=== PATIENT | female | born 1940 | race Caucasian/White ===

== ENCOUNTER 2021-03-21 12:28 | Inpatient (IN) | payer MEDICARE ==
[2021-03-21] MEDS ORDERED: SODIUM CHLORIDE 0.9% 1,000 ML IV STA (12:30)
[2021-03-21] MEDS ORDERED: DIPH,PERTUS(ACELL)TETVAC-LF 0.5 ML VIAL IM ONE (12:30)
[2021-03-21 12:33] LABS: Glucose,Whole Blood 133 mg/dL (75-99)
[2021-03-21] MEDS ORDERED: LIDOCAINE 2% INJ 20 MG/ML (20 ML MDV) IV ONE (12:38)
--- NOTE | 2021-03-21 12:51 | ED ---
General Adult HPI - General Stated complaint: head injury, trauma Time Seen by Provider: 03/21/21 12:28 Source: patient, EMS, RN notes reviewed, old records reviewed - History of Present Illness Initial comments: This is an 80-year-old female who fell backwards and hit her head on the concrete. Patient is not on any thinners. Patient hit her head but did not lose consciousness however EMS stated she became less and less responsive in route. Currently patient is able to answer her name and where she is but does not remember the event. Patient currently denies any symptoms but again she is alert and oriented 2 only. According to the people that were with the patient she is typically a little unsteady on her feet. No other history is available this time - Related Data Home Medications Medication Instructions Recorded Confirmed Citalopram Hydrobromide 40 mg PO DAILY 03/21/21 03/21/21 [Citalopram HBr] Fluticasone/Umeclidin/Vilanter 1 puff INHALATION RT-DAILY 03/21/21 03/21/21 [Trelegy Ellipta 100-62.5-25] Losartan [Cozaar] 50 mg PO DAILY 03/21/21 03/21/21 Simvastatin [Zocor] 40 mg PO DAILY 03/21/21 03/21/21 Allergies Allergy/AdvReac Type Severity Reaction Status Date / Time fish derived Allergy Unknown Verified 03/21/21 13:11 Penicillins Allergy Unknown Verified 03/21/21 13:11 Review of Systems ROS Statement: Those systems with pertinent positive or pertinent negative responses have been documented in the HPI. ROS Other: All systems not noted in ROS Statement are negative. General Exam - General Exam Comments Initial Comments: GENERAL: Patient is well-developed and well-nourished. Patient is nontoxic and well- hydrated and is in mild distress. On the occipital region of the scalp a little bit to the right is an area about 2 cm in diameter that feels slightly depressed. Patient remains in a c-collar. ENT: Neck is soft and supple. No significant lymphadenopathy is noted. Oropharynx is clear. Moist mucous membranes. EYES: The sclera were anicteric and conjunctiva were pink and moist. Extraocular movements were intact and pupils were equal round and reactive to light. Eyelids were unremarkable. PULMONARY: Unlabored respirations. Good breath sounds bilaterally. No audible rales rhonchi or wheezing was noted. CARDIOVASCULAR: There is a regular rate and rhythm without any murmurs gallops or rubs. ABDOMEN Soft and nontender with normal bowel sounds. SKIN: Skin is clear with no lesions or rashes and otherwise unremarkable. NEUROLOGIC: Patient is alert and oriented 2. Cranial nerves II through XII are grossly intact. Motor and sensory are also intact. Normal speech, volume and content. Symmetrical smile. MUSCULOSKELETAL: Normal extremities with adequate strength and full range of motion. No lower extremity swelling or edema. No calf tenderness. LYMPHATICS: No significant lymphadenopathy is noted PSYCHIATRIC: Normal psychiatric evaluation. Course Vital Signs 03/21/21 03/21/21 13:02 17:35 Pulse Rate 62 54 L Respiratory 18 18 Rate Blood Pressure 200/118 135/71 O2 Sat by Pulse 93 L 98 Oximetry Procedures - Laceration Laceration #1 Consent Obtained: verbal consent Indication: laceration Site: scalp Description: stellate Depth: simple, single layer Size of Sutures: other ([place] #5) Technique: simple, interrupted ( 5) Complications: pain Patient Tolerated Procedure: well Medical Decision Making - Medical Decision Making This was called a priority 1 trauma EKG shows sinus rhythm at 72 bpm WV interval 170 QRS is 82 QT interval 420 QTC is 459. Patient's EKG shows no ST segment elevation or depression. Chest x-ray shows age-indeterminate right sided rib deformity patient is not tender over that area at all. X-ray of the pelvis shows a question superior rami fracture on the right however on palpation of that area and full range of motion of the hip I did not elicit any pain from the patient. Patient is a 3 cm lack on her scalp was stapled that up. Patient also was nauseous she received Zofran she also received tetanus and Ancef. Dr. Tobias came down and saw the patient and determined the patient could be admitted under her I will also consult neurology and medicine. Dr. Tobias downgraded trauma to a democrat to after she saw the patient and the CAT scan's After patient was admitted and she got up to go to the bathroom she was planning of a little right pelvis pain. Be consistent with the possible superior rami fracture. - Lab Data Result diagrams: 03/21/21 12:36 03/21/21 12:36 Lab Results 03/21/21 03/21/21 03/21/21 Range/Units 12:31 12:36 12:36 WBC 10.1 (3.8-10.6) k/uL RBC 4.81 (3.80-5.40) m/uL Hgb 15.7 (11.4-16.0) gm/dL Hct 46.9 H (34.0-46.0) % MCV 97.5 D (80.0-100.0) fL MCH 32.7 (25.0-35.0) pg MCHC 33.6 (31.0-37.0) g/dL RDW 12.7 (11.5-15.5) % Plt Count 230 (150-450) k/uL MPV 8.0 Neutrophils % 73 % Lymphocytes % 17 % Monocytes % 7 % Eosinophils % 1 % Basophils % 0 % Neutrophils # 7.3 (1.3-7.7) k/uL Lymphocytes # 1.7 (1.0-4.8) k/uL Monocytes # 0.7 (0-1.0) k/uL Eosinophils # 0.1 (0-0.7) k/uL Basophils # 0.0 (0-0.2) k/uL PT 10.0 (9.0-12.0) sec INR 0.9 (<1.2) APTT 19.5 L (22.0-30.0) sec Sodium (137-145) mmol/L Potassium (3.5-5.1) mmol/L Chloride (98-107) mmol/L Carbon Dioxide (22-30) mmol/L Anion Gap mmol/L BUN (7-17) mg/dL Creatinine (0.52-1.04) mg/dL Est GFR (CKD-EPI)AfAm (>60 ml/min/1.73 sqM) Est GFR (CKD-EPI)NonAf (>60 ml/min/1.73 sqM) Glucose (74-99) mg/dL POC Glucose (mg/dL) 133 H (75-99) mg/dL POC Glu Customer Technical Services Manager ID Demetrio Zhun Calcium (8.4-10.2) mg/dL Total Bilirubin (0.2-1.3) mg/dL AST (14-36) U/L ALT (4-34) U/L Alkaline Phosphatase (38-126) U/L Troponin I (0.000-0.034) ng/mL Total Protein (6.3-8.2) g/dL Albumin (3.5-5.0) g/dL Serum Alcohol mg/dL Blood Type Blood Type Confirm Blood Type Recheck Bld Type Recheck Status Antibody Screen Spec Expiration Date 03/21/21 03/21/21 03/21/21 Range/Units 12:36 12:36 12:36 WBC (3.8-10.6) k/uL RBC (3.80-5.40) m/uL Hgb (11.4-16.0) gm/dL Hct (34.0-46.0) % MCV (80.0-100.0) fL MCH (25.0-35.0) pg MCHC (31.0-37.0) g/dL RDW (11.5-15.5) % Plt Count (150-450) k/uL MPV Neutrophils % % Lymphocytes % % Monocytes % % Eosinophils % % Basophils % % Neutrophils # (1.3-7.7) k/uL Lymphocytes # (1.0-4.8) k/uL Monocytes # (0-1.0) k/uL Eosinophils # (0-0.7) k/uL Basophils # (0-0.2) k/uL PT (9.0-12.0) sec INR (<1.2) APTT (22.0-30.0) sec Sodium 137 (137-145) mmol/L Potassium 5.1 (3.5-5.1) mmol/L Chloride 106 (98-107) mmol/L Carbon Dioxide 20 L (22-30) mmol/L Anion Gap 11 mmol/L BUN 14 (7-17) mg/dL Creatinine 0.88 (0.52-1.04) mg/dL Est GFR (CKD-EPI)AfAm 72 (>60 ml/min/1.73 sqM) Est GFR (CKD-EPI)NonAf 62 (>60 ml/min/1.73 sqM) Glucose 140 H (74-99) mg/dL POC Glucose (mg/dL) (75-99) mg/dL POC Glu Customer Technical Services Manager ID Calcium 9.9 (8.4-10.2) mg/dL Total Bilirubin 0.8 (0.2-1.3) mg/dL AST 30 (14-36) U/L ALT 14 (4-34) U/L Alkaline Phosphatase 73 (38-126) U/L Troponin I <0.012 (0.000-0.034) ng/mL Total Protein 7.2 (6.3-8.2) g/dL Albumin 4.2 (3.5-5.0) g/dL Serum Alcohol <10 mg/dL Blood Type A Positive Blood Type Confirm Blood Type Recheck No Previous Record Bld Type Recheck Status CABO Indicated Antibody Screen NEGATIVE Spec Expiration Date 03/24/2021 - 233503/21/21 Range/Units 13:09 WBC (3.8-10.6) k/uL RBC (3.80-5.40) m/uL Hgb (11.4-16.0) gm/dL Hct (34.0-46.0) % MCV (80.0-100.0) fL MCH (25.0-35.0) pg MCHC (31.0-37.0) g/dL RDW (11.5-15.5) % Plt Count (150-450) k/uL MPV Neutrophils % % Lymphocytes % % Monocytes % % Eosinophils % % Basophils % % Neutrophils # (1.3-7.7) k/uL Lymphocytes # (1.0-4.8) k/uL Monocytes # (0-1.0) k/uL Eosinophils # (0-0.7) k/uL Basophils # (0-0.2) k/uL PT (9.0-12.0) sec INR (<1.2) APTT (22.0-30.0) sec Sodium (137-145) mmol/L Potassium (3.5-5.1) mmol/L Chloride (98-107) mmol/L Carbon Dioxide (22-30) mmol/L Anion Gap mmol/L BUN (7-17) mg/dL Creatinine (0.52-1.04) mg/dL Est GFR (CKD-EPI)AfAm (>60 ml/min/1.73 sqM) Est GFR (CKD-EPI)NonAf (>60 ml/min/1.73 sqM) Glucose (74-99) mg/dL POC Glucose (mg/dL) (75-99) mg/dL POC Glu Customer Technical Services Manager ID Calcium (8.4-10.2) mg/dL Total Bilirubin (0.2-1.3) mg/dL AST (14-36) U/L ALT (4-34) U/L Alkaline Phosphatase (38-126) U/L Troponin I (0.000-0.034) ng/mL Total Protein (6.3-8.2) g/dL Albumin (3.5-5.0) g/dL Serum Alcohol mg/dL Blood Type Blood Type Confirm A Positive Blood Type Recheck Bld Type Recheck Status Antibody Screen Spec Expiration Date Critical Care Time Critical Care Time: Yes Total Critical Care Time: 35 Disposition Clinical Impression: Scalp laceration, Concussion, Fracture of superior pubic ramus Disposition: ADMITTED IP TO THIS [facility] Time of Disposition: 13:45
[2021-03-21 12:52] LABS: Basophils % (A) 0 %; Eosinophils # (A) 0.1 k/uL (0-0.7); Eosinophils % (A) 1 %; HCT 46.9 % (34.0-46.0); HGB 15.7 gm/dL (11.4-16.0); Lymphocytes # (A) 1.7 k/uL (1.0-4.8); Lymphocytes % (A) 17 %; MCH 32.7 pg (25.0-35.0); MCHC 33.6 g/dL (31.0-37.0); Monocytes # (A) 0.7 k/uL (0-1.0); Monocytes % (A) 7 %; Neutrophils # (A) 7.3 k/uL (1.3-7.7); Neutrophils % (A) 73 %; Platelet Count 230 k/uL (150-450); RBC 4.81 m/uL (3.80-5.40); RDW 12.7 % (11.5-15.5); WBC 10.1 k/uL (3.8-10.6)
--- NOTE | 2021-03-21 12:53 | XR ---
EXAMINATION TYPE: XR pelvis AP view DATE OF EXAM: 03/21/2021 COMPARISON: NONE HISTORY: Pain The osseous structures are intact and the joint spaces are preserved. No acute fracture is seen. Vi sualized bowel gas pattern is nonspecific. Calcifications are likely vascular. Additional calcificat ions are seen adjacent to the acetabulum. There appears to be cortical step-off near the anterior col umn of acetabulum and superior pubic ramus. Diffuse osteopenia. Degenerative change of the spine. IMPRESSION: 1. Exam is limited due to patient rotation however findings are suspicious for a fracture near the an terior column of the acetabulum and superior pubic ramus junction. Correlate with pain and point tend erness..
[2021-03-21] MEDS ORDERED: ONDANSETRON 4 MG/2 ML VIAL IVP STA (12:54)
[2021-03-21 13:03] LABS: ALT 14 U/L (4-34); African American GFR (CKD) 72 (>60 ml/min/1.73 sqM); Alcohol <10 mg/dL; Anion Gap 11 mmol/L; Blood Urea Nitrogen 14 mg/dL (7-17); Calcium 9.9 mg/dL (8.4-10.2); Carbon Dioxide 20 mmol/L (22-30); Chloride 106 mmol/L (98-107); Glucose 140 mg/dL (74-99); Non-African American GFR(CKD) 62 (>60 ml/min/1.73 sqM); Sodium 137 mmol/L (137-145); Total Bilirubin 0.8 mg/dL (0.2-1.3)
[2021-03-21 13:04] LABS: INR 0.9 (<1.2)
--- NOTE | 2021-03-21 13:04 | XR ---
EXAMINATION TYPE: XR chest 1V portable DATE OF EXAM: 03/21/2021 COMPARISON: NONE HISTORY: Pain TECHNIQUE: Single frontal view of the chest is obtained. FINDINGS: Diffuse osteopenia. There is atherosclerotic change of the aorta with ectasia. Hyperinflat ion suggests COPD. Deformities involving the right mid lateral and posterior lower rib cage of the ri ght fifth and sixth rib suspicious for fractures. No interstitial edema or pleural effusion. Heart is prominent in size. IMPRESSION: 1. Age-indeterminate deformities involving the mid lateral and lower right rib cage correlate with po int tenderness to exclude subtle acute fractures.
--- NOTE | 2021-03-21 13:12 | CT ---
EXAMINATION TYPE: CT brain ajit sauceda DATE OF EXAM: 03/21/2021 COMPARISON: None HISTORY: Trauma, fall backwards from standing position CT DLP: 1318.6 mGycm, Automated exposure control for dose reduction was used. CONTRAST: Patient injected with 0 mL of Isovue 300. CT of the brain is performed utilizing 3 mm thick sections through the posterior fossa and 3 mm thick sections through the remaining calvarium. Study is performed within 24 hours of arrival to the hospital. No abnormal hyperdensity is present to suggest an acute intracranial hemorrhage. No mass lesion is evident. No acute infarcts are evident. There is an old lacunar infarct within the right basal ganglia. There is some mild periventricular white matter hypodensity, likely in the bases chronic white matter isch emic changes. Ventricles and sulci are appropriate for the patient age. Paranasal sinuses and mastoid air cells within the [id number] are clear. No depressed skull fractu res are evident. No acute skull fractures are identified. IMPRESSIONS: 1. Atrophy with chronic appearing periventricular white matter ischemic changes. 2. 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 CT cervical spine. COMPARISON: None CT of the cervical spine is performed in the axial plane at 2 mm thick sections. Reconstructed image s in the coronal, and sagittal plane are reviewed on the computer. No acute fractures are evident. There is a kyphosis present. There is loss of disc height throughout the cervical spine greatest at C5-6. Anterior vertebral body spurring is present C3-C7. There is a grade 1 spondylolisthesis of C3 anterior C4. Note is made of so me uncovertebral joint hypertrophy without severe foraminal stenosis. Vertebral body heights are preserved. No spinal canal stenosis is evident. IMPRESSIONS: 1. Degenerative disc changes throughout the cervical spine. 2. Cervical kyphosis. 3. Grade 1 spondylolisthesis of C3 anteriorly on C4. 4. No acute osseous abnormality cervical spine
[2021-03-21 13:13] LABS: MCV 97.5 fL (80.0-100.0)
[2021-03-21 13:15] LABS: Partial Thromboplastin Time 19.5 sec (22.0-30.0)
[2021-03-21] MEDS ORDERED: LIDOCAINE 2% SYG (PF) 100 MG/5 ML IV ONE (13:15)
[2021-03-21 13:16] LABS: AST 30 U/L (14-36); Albumin 4.2 g/dL (3.5-5.0); Alkaline Phosphatase 73 U/L (38-126); Potassium 5.1 mmol/L (3.5-5.1); Total Protein 7.2 g/dL (6.3-8.2)
--- NOTE | 2021-03-21 13:33 | P.GSHP ---
History of Present Illness H&P Date: 03/21/21 CHIEF COMPLAINT: Status post fall, ground level HISTORY OF PRESENT ILLNESS: The patient is a 80-year-old female who presented acutely to the emergency room as a initial level I trauma for depressed skull fracture after falling onto concrete ground. Upon initial assessment, patient did have delirium per ER records. Additionally, patient had laceration on the scalp. No reports of blood thinners. Patient was admitted with status post fall and concussive event. PAST MEDICAL HISTORY: See list and reviewed PAST SURGICAL HISTORY: See list and reviewed MEDICATIONS: See list and reviewed ALLERGIES: See list and reviewed SOCIAL HISTORY: See list and reviewed FAMILY HISTORY: See list and reviewed REVIEW OF ORGAN SYSTEMS: Obtained her records CONSTITUTIONAL: No fevers or chills. EYES: Denies any trouble with vision. No glasses. HEENT: No difficulties with hearing. No nosebleeds. No difficulty swallowing. RESPIRATORY: Denies pneumonia. Denies any troubles with breathing or dyspnea on exertion. CARDIOVASCULAR: Has hypertensive heart disease GASTROINTESTINAL: No recent change in bowel habits. GENITOURINARY: No blood in urine. NEUROLOGICAL: No recent strokes. MUSCULOSKELETAL: Denies any back pain, stiffness or joint arthritis. SKIN: No current skin cancer. No rash. PSYCHIATRIC: Has depression. ENDOCRINE: Denies current thyroid disorders. Denies any blood sugar glucose intolerance. HEME/LYMPHATIC: No chronic blood thinners. ALLERGY/IMMUNOLOGY: No immunoglobulin therapy. No immune deficiencies. BREAST: Denies current breast lumps, pain or nipple discharge. PHYSICAL EXAM: VITALS: Reviewed CONSTITUTIONAL: Well developed and in no acute distress. EYES: Conjuctivae without sclera icterus. Extraocular movements grossly intact. HEAD, EARS, NOSE, THROAT: Moist buccal mucosa. Hears conversational speech. No nasal drainage. Laceration of posterior scalp. NECK: No spinal tenderness. RESPIRATORY: Non-labored respirations and equal bilateral excursions. No gross wheezes. CARDIOVASCULAR: Regular rate and rhythm. Palpable 2+ radial pulses. ABDOMEN: No peritonitis. Nontender. LYMPH: No gross neck lymphadenopathy. MUSCULOSKELETAL: No clubbing cyanosis or edema. SKIN: Warm and well perfused with good skin turgor. NEUROLOGIC: Cranial nerves II through XII grossly intact. No focal or lateralizing signs. Patient follows commands. Can wiggle toes. PSYCH: Alert and oriented to person. CLINCAL LABS: Reviewed. WBC normal at 10,000. Coags within normal limits. IMAGING: Independently reviewed CT of the head without acute intracranial inj ury. No skull fractures identified. This is my independent interpretation. RADIOLOGY: Report reviewed CTs of the head and spine without acute intracranial injury or spinal injury Pelvic x-ray report questionable pubic rami fracture Chest x-ray report with old rib fractures EKG: Demonstrate multiple abnormalities including inferior and anterior infarcts, age undetermined ASSESSMENT: 1. Status post ground-level fall with head laceration and concussive event PLAN: 1. Admission with consultation to neurology for concussive event 2. Medicine consultation for general medical care 3. Orthopedic consultation for questionable pubic chromic 4. Cardiology consultation for abnormal EKG EVENTS: I presented for trauma activation. Patient seen and evaluated. Initial trauma 1 activation for suspicion of depressed skull fracture and mental status changes. Computed tomography scan negative for acute skull fracture. Patient came in hypertensive. No hypotension. Case downgraded to level II without presence of depressed skull fracture or hypotension. Critical care time including discussion, review of films, coordination of care over 33 minutes Past Medical History Past Medical History: COPD, Hyperlipidemia, Hypertension History of Any Multi-Drug Resistant Organisms: None Reported Past Surgical History: Hysterectomy Past Psychological History: No Psychological Hx Reported Smoking Status: Current every day smoker Past Alcohol Use History: None Reported Past Drug Use History: None Reported Medications and Allergies Home Medications Medication Instructions Recorded Confirmed Type Citalopram Hydrobromide 40 mg PO DAILY 03/21/21 03/21/21 History [Citalopram HBr] Fluticasone/Umeclidin/Vilanter 1 puff INHALATION RT-DAILY 03/21/21 03/21/21 History [Trelegy Ellipta 100-62.5-25] Losartan [Cozaar] 50 mg PO DAILY 03/21/21 03/21/21 History Simvastatin [Zocor] 40 mg PO DAILY 03/21/21 03/21/21 History Allergies Allergy/AdvReac Type Severity Reaction Status Date / Time fish derived Allergy Unknown Verified 03/21/21 13:11 Penicillins Allergy Unknown Verified 03/21/21 13:11 Surgical - Exam Vital Signs Pulse Resp BP Pulse Ox 62 18 200/118 93 L 03/21/21 13:02 03/21/21 13:02 03/21/21 13:02 03/21/21 13:02 Results - Labs 03/21/21 12:36 03/21/21 12:36 Abnormal Lab Results - Last 24 Hours (Table) 03/21/21 03/21/21 03/21/21 Range/Units 12:31 12:36 12:36 Hct 46.9 H (34.0-46.0) % APTT 19.5 L (22.0-30.0) sec Carbon Dioxide (22-30) mmol/L Glucose (74-99) mg/dL POC Glucose (mg/dL) 133 H (75-99) mg/dL 03/21/21 Range/Units 12:36 Hct (34.0-46.0) % APTT (22.0-30.0) sec Carbon Dioxide 20 L (22-30) mmol/L Glucose 140 H (74-99) mg/dL POC Glucose (mg/dL) (75-99) mg/dL Diabetes panel 03/21/21 Range/Units 12:36 Sodium 137 (137-145) mmol/L Potassium 5.1 (3.5-5.1) mmol/L Chloride 106 (98-107) mmol/L Carbon Dioxide 20 L (22-30) mmol/L BUN 14 (7-17) mg/dL Creatinine 0.88 (0.52-1.04) mg/dL Glucose 140 H (74-99) mg/dL Calcium 9.9 (8.4-10.2) mg/dL AST 30 (14-36) U/L ALT 14 (4-34) U/L Alkaline Phosphatase 73 (38-126) U/L Total Protein 7.2 (6.3-8.2) g/dL Albumin 4.2 (3.5-5.0) g/dL Calcium panel 03/21/21 Range/Units 12:36 Calcium 9.9 (8.4-10.2) mg/dL Albumin 4.2 (3.5-5.0) g/dL Pituitary panel 03/21/21 Range/Units 12:36 Sodium 137 (137-145) mmol/L Potassium 5.1 (3.5-5.1) mmol/L Chloride 106 (98-107) mmol/L Carbon Dioxide 20 L (22-30) mmol/L BUN 14 (7-17) mg/dL Creatinine 0.88 (0.52-1.04) mg/dL Glucose 140 H (74-99) mg/dL Calcium 9.9 (8.4-10.2) mg/dL Adrenal panel 03/21/21 Range/Units 12:36 Sodium 137 (137-145) mmol/L Potassium 5.1 (3.5-5.1) mmol/L Chloride 106 (98-107) mmol/L Carbon Dioxide 20 L (22-30) mmol/L BUN 14 (7-17) mg/dL Creatinine 0.88 (0.52-1.04) mg/dL Glucose 140 H (74-99) mg/dL Calcium 9.9 (8.4-10.2) mg/dL Total Bilirubin 0.8 (0.2-1.3) mg/dL AST 30 (14-36) U/L ALT 14 (4-34) U/L Alkaline Phosphatase 73 (38-126) U/L Total Protein 7.2 (6.3-8.2) g/dL Albumin 4.2 (3.5-5.0) g/dL Assessment and Plan (1) Fall from ground level Current Visit: Yes Status: Acute Code(s): W18.30XA - FALL ON SAME LEVEL, UNSPECIFIED, INITIAL ENCOUNTER SNOMED Code(s): 43069949 (2) Concussion Current Visit: Yes Status: Acute Code(s): S06.0X9A - CONCUSSION W LOSS OF CONSCIOUSNESS OF UNSP DURATION, INIT SNOMED Code(s): 521771471 (3) Fracture of superior pubic ramus Current Visit: Yes Status: Acute Code(s): S32.519A - FRACTURE OF SUPERIOR RIM OF UNSP PUBIS, INIT FOR CLOS FX SNOMED Code(s): 466545024 (4) Scalp laceration Current Visit: Yes Status: Acute Code(s): S01.01XA - LACERATION WITHOUT FOREIGN BODY OF SCALP, INITIAL ENCOUNTER SNOMED Code(s): 542830253
--- NOTE | 2021-03-21 13:34 | P.PN ---
Progress Note - Text Progress Note Date: 03/21/21 Patient seen and evaluated. Initial trauma 1 activation for suspicion of depressed skull fracture and change in mental status. Computed tomography scan negative for acute skull fracture. Patient came in hypertensive. No hypotension. Case downgraded to level II without presence of depressed skull fracture or hypotension
[2021-03-21] MEDS ORDERED: SODIUM CHLORIDE 0.9% 1,000 ML IV ONE (13:46)
[2021-03-21] MEDS: ONDANSETRON 4 MG/2 ML VIAL IVP PRN (18:50)
[2021-03-22 04:21] LABS: Amphetamine Screen,Urine Not Detected (NotDetected); Barbiturate Screen,Urine Not Detected (NotDetected); Benzodiazepines Screen,Urine Not Detected (NotDetected); Cocaine Screen,Urine Not Detected (NotDetected); Methadone Screen, Urine Not Detected (NotDetected); Opiate Screen,Urine Not Detected (NotDetected); Oxycodone Screen, Urine Not Detected (NotDetected); Phencyclidine Screen,Urine Not Detected (NotDetected); Tricyclic Antidepressant,Urine Not Detected (NotDetected); Urn Cannabinoid Scrn Not Detected (NotDetected)
[2021-03-22 04:24] LABS: Amorphous Sediment,Urine Rare /hpf; Appearance,Urine Clear (Clear); Bilirubin,Urine Negative (Negative); Blood,Urine Trace (Negative); Color,Urine Light Yellow; Glucose,Urine (UA) Negative (Negative); Ketones,Urine Trace (Negative); Leukocyte Esterase,Urine Negative (Negative); Mucus,Urine Rare /hpf; Nitrite,Urine Negative (Negative); Protein,Urine Negative (Negative); RBC,Urine 4 /hpf (0-5); Specific Gravity,Urine 1.011 (1.001-1.035); Squamous Epithelial Cell,Urine 3 /hpf (0-4); Urobilinogen,Urine <2.0 mg/dL (<2.0); WBC,Urine 1 /hpf (0-5)
[2021-03-22] MEDS ORDERED: NON FORMULARY DRUG (Fluticasone/Umeclidin/Vilanter [Trelegy Ellipta 100-62.5-25] 1 EACH Ea INHALATION SCH (08:00)
--- NOTE | 2021-03-22 08:22 | P.CONS ---
History of Present Illness - History of Present Illness This is a pleasant 80 years old female with past medical history of hypertens ion, hyperlipidemia, COPD Patient presents because of fall backwards and hitting his head withoout a ssociated loss of consciousness but per EMS became less responsive. Patient could not remember the event. Patient states she was walking to the restroom with her girlfriend but she hadn't talked to her after she fell., The next thing she remembers she is in the hospital. She thinks she has COPD and she smokes about 1 pack per day, no alcohol or illicit tracts but she denies dyspnea, no exertional dyspnea or chest pain. No nausea vomiting or diarrhea. No abdominal pain. No headache or weakness or numbness. She got dizzy sometimes especially when she gets up clearly and quickly. Denies the last week ago. She saw her PCP Dr. Mcguire one week earlier to check her veins as she has some red rash in her both feet, they told her she has been veins. 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 Liver enzymes not elevated. Urine analysis showing trace glucose and ketones otherwise is unremarkable her urine drug screen is negative, serum alcohol is negative EKG showing possible ectopic atrial rhythm with PAC. No significant ST-T changes, poor R-wave progression and QTC of 459. Chest x-ray showing age indeterminant deformities involving mid lateral and lower right rib cage correlated with point tenderness to exclude subtle acute fractures CT of the head and cervical spine: Unremarkable for acute process. No fracture or dislocation Pelvic x-ray suspicious for acute fracture near the anterior column of the acetabulum and superior pubic ramus junction. In the emergency room she started on normal saline at 75 mL/h Review of Systems CONSTITUTIONAL: No fever, no malaise, no fatigue. HEENT: No recent visual problems or hearing problems. Denied any sore throat. CARDIOVASCULAR: No orthopnea, PND, no palpitations, no syncope. PULMONARY: No shortness of breath, no cough, no hemoptysis. GASTROINTESTINAL: No diarrhea, no nausea, no vomiting, no abdominal pain. Normoactive bowel sounds. NEUROLOGICAL: No headaches, no weakness, no numbness. HEMATOLOGICAL: Denies any bleeding or petechiae. GENITOURINARY: Denies any burning micturition, frequency, or urgency. MUSCULOSKELETAL/RHEUMATOLOGICAL: Denies any joint pain, swelling, or any muscle pain. ENDOCRINE: Denies any polyuria or polydipsia. Past Medical History Past Medical History: COPD, Hyperlipidemia, Hypertension History of Any Multi-Drug Resistant Organisms: None Reported Past Surgical History: Hysterectomy Past Psychological History: No Psychological Hx Reported Smoking Status: Current every day smoker Past Alcohol Use History: None Reported Past Drug Use History: None Reported Medications and Allergies Home Medications Medication Instructions Recorded Confirmed Type Citalopram Hydrobromide 40 mg PO DAILY 03/21/21 03/21/21 History [Citalopram HBr] Fluticasone/Umeclidin/Vilanter 1 puff INHALATION RT-DAILY 03/21/21 03/21/21 History [Trelegy Ellipta 100-62.5-25] Losartan [Cozaar] 50 mg PO DAILY 03/21/21 03/21/21 History Simvastatin [Zocor] 40 mg PO DAILY 03/21/21 03/21/21 History Allergies Allergy/AdvReac Type Severity Reaction Status Date / Time fish derived Allergy Unknown Verified 03/21/21 13:11 Penicillins Allergy Unknown Verified 03/21/21 13:11 Physical Exam Vitals: Vital Signs Pulse Resp BP Pulse Ox 03/22/21 03:00 62 12 166/81 95 03/22/21 02:00 56 L 17 156/79 96 03/21/21 21:29 59 L 18 128/87 95 03/21/21 18:58 64 18 166/77 98 03/21/21 17:35 54 L 18 135/71 98 03/21/21 13:02 62 18 200/118 93 L GENERAL: The patient is alert and oriented x3, not in any acute distress. Well developed, well nourished. -HEENT: Pupils are round and equally reacting to light. EOMI. No scleral icterus. No conjunctival pallor. Normocephalic, atraumatic. No pharyngeal erythema. No thyromegaly. Sutured laceration of the back of her right upper head, looks dehydrated CARDIOVASCULAR: S1 and S2 present. No murmurs, rubs, or gallops. PULMONARY: Chest is clear to auscultation, no wheezing or crackles. ABDOMEN: Soft, nontender, nondistended, normoactive bowel sounds. No palpable organomegaly. MUSCULOSKELETAL: No joint swelling or deformity. EXTREMITIES: No cyanosis, clubbing, or pedal edema. NEUROLOGICAL: Gross neurological examination did not reveal any focal deficits. -SKIN: No rashes. No petechiae. Some mild pinkish rash on the right forefoot and left ankle. No cellulitis, no warmth or swelling or tenderness Results CBC & Chem 7: 03/21/21 12:36 03/21/21 12:36 Labs: Abnormal Lab Results - Last 24 Hours (Table) 03/21/21 03/21/21 03/21/21 Range/Units 12:31 12:36 12:36 Hct 46.9 H (34.0-46.0) % APTT 19.5 L (22.0-30.0) sec Carbon Dioxide (22-30) mmol/L Glucose (74-99) mg/dL POC Glucose (mg/dL) 133 H (75-99) mg/dL Urine Ketones (Negative) Urine Blood (Negative) Amorphous Sediment (None) /hpf Urine Mucus (None) /hpf 03/21/21 03/22/21 Range/Units 12:36 Unknown Hct (34.0-46.0) % APTT (22.0-30.0) sec Carbon Dioxide 20 L (22-30) mmol/L Glucose 140 H (74-99) mg/dL POC Glucose (mg/dL) (75-99) mg/dL Urine Ketones Trace H (Negative) Urine Blood Trace H (Negative) Amorphous Sediment Rare H (None) /hpf Urine Mucus Rare H (None) /hpf Assessment and Plan Assessment: Fall with concussion and transient loss of consciousness, possible syncope Scalp laceration status post surgical repair Right pelvic fracture, acetabulum and superior pubic ramus Possible right mid lateral and lower rib cage fractures Possible Right ear bleeding, stopped now Hypertension, uncontrolled on admission Hyperlipidemia COPD, no acute process Nicotine dependence Plan: This is a pleasant 80 years old female who presents with fall/concussion, scalp laceration, pelvic fracture and right ear bleeding Continue with gentle hydration, check orthostatic vitals and TSH. Check echocardiogram and telemetry. Consult cardiology team Resume losartan and monitor blood pressure. Continue with gentle hydration Check telemetry several consultants on the case including neurology, ENT and orthopedic. Besides the surgery primary team Labs and medication were reviewed.. Continue same treatment. Continue with symptomatic treatment. Resume home medication. Monitor lytes and vitals. DVT and GI prophylaxis. Further recommendations depends on the clinical course of the patient PT/OT: Pending Prognosis is guarded
[2021-03-22] MEDS: LOSARTAN 50 MG TAB PO SCH (10:23)
[2021-03-22] MEDS: CITALOPRAM HYDROBROMIDE 20 MG TAB PO SCH (10:23)
[2021-03-22] MEDS: SODIUM CHLORIDE 0.9% 1,000 ML IV SCH ×2 (10:23→20:26)
--- NOTE | 2021-03-22 10:37 | ECHOF ---
Referral Reason:Rule out heart disease MEASUREMENTS -------- HEIGHT: 167.6 cm WEIGHT: 59.0 kg BP: 166/81 IVSd: 1.0 cm (0.6 - 1.1) LVIDd: 4.0 cm (3.9 - 5.3) LVPWd: 0.9 cm (0.6 - 1.1) IVSs: 2.0 cm LVIDs: 1.9 cm LVPWs: 1.5 cm Ao Diam: 3.2 cm (2.0 - 3.7) AV Cusp: 1.6 cm (1.5 - 2.6) LA Diam: 1.9 cm (2.7 - 3.8) MV EXCURSION: 13.059 mm (> 18.000) MV EF SLOPE: 74 mm/s (70 - 150) EPSS: 0.5 cm MV E [place]: 0.85 m/s MV DecT: 196 ms MV A [place]: 0.77 m/s MV E/A Ratio: 1.11 RAP: 5.00 mmHg RVSP: 21.95 mmHg FINDINGS -------- This was a technically good study. The left ventricular size is normal. There is mild concentric left ventricular hypertrophy. Overa ll left ventricular systolic function is normal with, an EF between 55 - 60 %. The right ventricle is normal in size. The left atrial size is normal. The right atrial size is normal. The aortic valve was not well visualized. The mitral valve is normal. The mitral valve leaflets are mildly thickened. Mild mitral regurgita tion is present. The tricuspid valve appears structurally normal. Mild tricuspid regurgitation present. Right vent ricular systolic pressure is normal at < 35 mmHg. There is no pulmonic regurgitation present. The aortic root size is normal. Normal inferior vena cava with normal inspiratory collapse consistent with estimated right atrial pre ssure of 5 mmHg. There is no pericardial effusion. CONCLUSIONS -------- 1. The left ventricular size is normal. 2. There is mild concentric left ventricular hypertrophy. 3. Overall left ventricular systolic function is normal with, an EF between 55 - 60 %. 4. The mitral valve leaflets are mildly thickened. 5. Mild mitral regurgitation is present. 6. Mild tricuspid regurgitation present. 7. There is no pericardial effusion. STRIPE MATCHER: Natalia Cohn [facility]
[2021-03-22] MEDS: IPRATROPIUM 0.5 MG/2.5 ML NEBU INHALATION SCH ×4 (11:40→20:14)
[2021-03-22] MEDS: SYMBICORT 80-4.5 MCG INHALER INHALATION SCH ×2 (11:40→20:14)
--- NOTE | 2021-03-22 11:52 | P.CNOR ---
History of Present Illness - [facility] Consult date: 03/22/21 History of present illness: This patient is an 80-year-old female with past medical history of hypertension, hyperlipidemia, COPD the presented to [facility] emergency department on 03/21/21 with complaints of a fall and syncopal episode. Patient states she was walking into [employer] and next thing she knew she was at the hospital. She states she does not remember what happened and she does not remember falling. Patient was transported to [facility] emergency department and a level 1 trauma was activated. Patient was initially evaluated by Dr. Miller, case was downgraded to level II after CT of the head was negative for skull fracture. Patient was noted to have large scalp laceration, which has been repaired. X-rays of the pelvis in the emergency department revealed a possible pelvic fracture. Patient was admitted under the care of Dr. Miller, with a consult placed to orthopedics for evaluation of possible pelvic fracture. At the time of my exam, the patient is not complaining of any pain. She denies pain in her hips or pelvis. She denies numbness or tingling in bilateral lower extremities. She denies back pain. She states she did get up to the bathroom since been in emergency department, and was not experiencing pain with ambulation. There are no complaints at this time. Vital signs stable. Past Medical History Past Medical History: COPD, Hyperlipidemia, Hypertension History of Any Multi-Drug Resistant Organisms: None Reported Past Surgical History: Hysterectomy Past Psychological History: No Psychological Hx Reported Smoking Status: Current every day smoker Past Alcohol Use History: None Reported Past Drug Use History: None Reported Medications and Allergies Home Medications Medication Instructions Recorded Confirmed Type Citalopram Hydrobromide 40 mg PO DAILY 03/21/21 03/21/21 History [Citalopram HBr] Fluticasone/Umeclidin/Vilanter 1 puff INHALATION RT-DAILY 03/21/21 03/21/21 History [Trelegy Ellipta 100-62.5-25] Losartan [Cozaar] 50 mg PO DAILY 03/21/21 03/21/21 History Simvastatin [Zocor] 40 mg PO DAILY 03/21/21 03/21/21 History Allergies Allergy/AdvReac Type Severity Reaction Status Date / Time fish derived Allergy Unknown Verified 03/21/21 13:11 Penicillins Allergy Unknown Verified 03/21/21 13:11 Physical Examination On examination, the patient is sitting up in bed in no pain distress. She is alert and oriented 3. She does have a large scalp laceration which has been repaired. Her breathing appears nonlabored. Her bilateral upper extremities reveal no signs of trauma or deformity. On inspection of her bilateral lower extremities there are no deformities or signs of trauma. On inspection of the bilateral hips, there is no erythema, ecchymosis, skin discoloration. No open wounds or lacerations. No pain with palpation of the pelvis, bilateral hips, thigh, knees, lower legs, ankles, feet. No pain with PROM of the bilateral hips, knees, ankles. Motor and sensory function intact of the bilateral lower extremities. Bilateral lower extremities warm and well perfused. Calves are soft and nontender. No pain with palpation of the lumbar spine. Results Pelvis x-ray 03/21/21: Evidence of a non-displaced fracture involving the right superior pubic ramus. - Labs Labs: Abnormal Lab Results - Last 24 Hours (Table) 03/21/21 03/21/21 03/21/21 Range/Units 12:31 12:36 12:36 Hct 46.9 H (34.0-46.0) % APTT 19.5 L (22.0-30.0) sec Carbon Dioxide (22-30) mmol/L Glucose (74-99) mg/dL POC Glucose (mg/dL) 133 H (75-99) mg/dL Urine Ketones (Negative) Urine Blood (Negative) Amorphous Sediment (None) /hpf Urine Mucus (None) /hpf 03/21/21 03/22/21 Range/Units 12:36 Unknown Hct (34.0-46.0) % APTT (22.0-30.0) sec Carbon Dioxide 20 L (22-30) mmol/L Glucose 140 H (74-99) mg/dL POC Glucose (mg/dL) (75-99) mg/dL Urine Ketones Trace H (Negative) Urine Blood Trace H (Negative) Amorphous Sediment Rare H (None) /hpf Urine Mucus Rare H (None) /hpf H & H 03/21/21 Range/Units 12:36 Hgb 15.7 (11.4-16.0) gm/dL Hct 46.9 H (34.0-46.0) % Coagulation 03/21/21 Range/Units 12:36 INR 0.9 (<1.2) Result Diagrams: 03/21/21 12:36 03/21/21 12:36 Assessment and Plan Assessment: Right non-displaced superior pubic ramus fracture Plan: - Clinical and imaging were discussed with the patient. Patient was discussed with Dr. Velazco. Recommend non-operative treatment. - Patient may weight bear as tolerated with a walker. - Physical therapy for gait and balance training. - We will follow patient with serial x-rays. Recommend follow-up in the office in two weeks for repeat x-rays.
--- NOTE | 2021-03-22 13:33 | CONS ---
CONSULTATION CHIEF COMPLAINT: Syncope. Kaylan is an 80-year-old lady with history of hypertension, dyslipidemia and asthma who presented to hospital having had a fall at home. I am told that the patient apparently fell backwards and had a laceration on the back of her head, but it is unclear if she had syncope or not. There is no bladder or bowel incontinence. There is no focal neurological deficit. At the time of my evaluation she appears comfortable at rest. She remains in sinus rhythm and is free of symptoms otherwise. On the monitor she seems to be in sinus rhythm. An EKG shows ectopic atrial rhythm with poor R-wave progression and nonspecific ST-T wave changes. She had one set of troponin that is negative. Potassium is 5.1, creatinine is 0.8, hemoglobin is 15.7, platelet count is 230. PAST MEDICAL HISTORY: Significant for hypertension, dyslipidemia and COPD. CURRENT MEDICATIONS: Current medications include Zocor 40 daily, losartan 50 daily, fluticasone. ALLERGIES: PENICILLIN AND FISH. FAMILY HISTORY: Negative for premature coronary artery disease. SOCIAL HISTORY: Negative for current smoking, EtOH abuse, or drug abuse. REVIEW OF SYSTEMS: HEENT is significant for fall and laceration of the scalp. CARDIAC: As described above. RESPIRATORY: Negative. GI: Negative. GENITOURINARY: Negative. ALLERGY/IMMUNOLOGY: Negative. SKIN: Negative. MUSCULOSKELETAL: Significant for fall. PSYCHOSOCIAL: Negative. DERMATOLOGY: Negative. CONSTITUTIONAL: Negative. SWEET POTATO DISINTEGRATOR: Possible syncope. PHYSICAL EXAMINATION: Patient is afebrile. Heart rate is 60 beats per minute. Blood pressure is 160/80, respiratory rate 12, O2 saturation is 95% on 2 L. There is no jugular venous distention. Chest exam reveals good air entry bilaterally. Heart exam reveals first and second heart sounds. No gallop. Has an ejection systolic murmur in the aortic area. Abdomen is soft. Examination of extremities did not reveal any edema. Peripheral pulses are felt. ASSESSMENT: Status post fall. Possible etiologies include syncope. PLAN: I will obtain a 2D echo. Repeat troponins on her. Watch her on telemetry and decide on further course of action based on how she evolves clinically. MMODL / IJN: [id number] /
--- NOTE | 2021-03-22 15:18 | P.PN ---
<Chanda Shell - Last Filed: 03/22/21 15:00> Subjective Progress Note Date: 03/22/21 CHIEF COMPLAINT: Fall HISTORY OF PRESENT ILLNESS: This 80-year-old female came into the ER after falling backwards and hitting her head on cement. She reports that she was walking into a restaurant and does not recall falling. There are concerns that she may had a had a syncopal episode. Cardiology and neurology have been consulted. Patient seen by orthopedics in regards to possible pelvic fracture. Patient does report nausea. Her headache has improved. Denies any abdominal pain. Denies any vomiting. Afebrile. No new labs for today. This afternoon called nursing staff to check on patient. Patient is apparently having more dizziness when she turns her head. And some noticeable hearing loss in the right ear. Patient denies any pain in her rib cage. Denies any shortness of breath. Afebrile. Urinalysis negative for infection. Is notable trace blood. Drug screen negative. alcohol level negative. Awaiting evaluation by neurology and ENT service Echo shows EF of 55-60% mild mitral regurgitation, mild tricuspid regurgitation EKG possible ectopic atrial rhythm with premature atrial complexes Computed tomography scan of the brain and cervical spine atrophy with chronic appearing periventricular white matter ischemic changes. Chronic old lacunar infarct right basal ganglion versus virchow Sheldon space. Degenerative disc changes throughout the cervical spine. Cervical kyphosis. Grade 1 spinal listhesis of C3 anteriorly and C4. No acute osseous abnormality of the cervical spine PHYSICAL EXAM: VITAL SIGNS: Reviewed GENERAL: Well-developed in no acute distress. HEENT: No sclera icterus. Extraocular movements grossly intact. Moist buccal mucosa. Head is normocephalic. Hears conversational speech. No nasal drainage. Patient has sutures on the right posterior scalp. Patient does have dried blood noted in the right ear NECK: Supple without lymphadenopathy. CHEST: Non-labored respirations and equal bilateral excursions. No tenderness with palpation of the chest wall CARDIOVASCULAR: Palpable 2+ radial pulses. ABDOMEN: Soft. Nondistended. Nontender. MUSCULOSKELETAL: No clubbing or cyanosis. NEUROLOGIC: No focal or lateralizing signs. Cranial nerves II through XII grossly intact. PSYCH: Appropriate affect. Alert and oriented to person, place and time. SKIN: Well perfused. Good skin turgor. ASSESSMENT: 1. Fall with concussion and loss of consciousness. Possible syncopal episode 2. Scalp laceration status post mikayla in ER 3. Right nondisplaced superior pubic ramus fracture 4. Possible right mid lateral and lower rib fractures noted on chest x-ray. Patient is nontender in the rib cage with palpation. Doubt that patient has rib fractures 5. History of COPD 6. History of nicotine dependence 7. Bleeding from right ear canal now resolved. Patient will be seen by ENT service PLAN: -Start regular diet -Continue cardiac monitoring -Multiple consultants recommendations noted. No surgical intervention planned by orthopedics. -Continue supportive care -Continue IV fluids -Continue antiemetics -Consult PT OT -GI prophylaxis Protonix and DVT prophylaxis SCDs Physician Utilization Engineer note has been reviewed by physician. Signing provider agrees with the documented findings, assessment, and plan of care. Objective - Vital Signs Vital signs: Vital Signs Temp 97.9 F 03/22/21 14:50 Pulse 56 L 03/22/21 14:50 Resp 16 03/22/21 14:50 BP 127/64 03/22/21 14:50 Pulse Ox 95 03/22/21 14:50 Intake & Output 03/21/21 03/22/21 03/22/21 18:59 06:59 18:59 Weight 58.967 kg - Labs CBC & Chem 7: 03/21/21 12:36 03/21/21 12:36 Labs: Abnormal Lab Results - Last 24 Hours (Table) 03/22/21 Range/Units Unknown Urine Ketones Trace H (Negative) Urine Blood Trace H (Negative) Amorphous Sediment Rare H (None) /hpf Urine Mucus Rare H (None) /hpf <Bisi Miller - Last Filed: 03/22/21 16:40> Subjective CHIEF COMPLAINT: Status post fall, ground level HISTORY OF PRESENT ILLNESS: The patient is a 80-year-old female who presented acutely to the emergency room yesterday as a initial level I trauma downgraded to level II for ground-level fall onto concrete ground. Initially patient was not lucid to events. She had been following commands. Today she reports she does know she fell onto concrete. She reports she may have blacked out. Additional consultants including orthopedic following. Cardiology also following. Patient did have transient bleeding from here now resolved. "I'm hungry and wants to go home." REVIEW OF ORGAN SYSTEMS: No chest pain. No shortness of breath. No fevers or chills. PHYSICAL EXAM: VITALS: Reviewed CONSTITUTIONAL: Well developed and in no acute distress. EYES: Conjuctivae without sclera icterus. Extraocular movements grossly intact. HEAD, EARS, NOSE, THROAT: Moist buccal mucosa. Hears conversational speech. No nasal drainage. Laceration of posterior scalp. RESPIRATORY: Non-labored respirations and equal bilateral excursions. No gross wheezes. CARDIOVASCULAR: Regular rate and rhythm. Palpable 2+ radial pulses. ABDOMEN: No peritonitis. Nontender. MUSCULOSKELETAL: No clubbing cyanosis or edema. SKIN: Warm and well perfused with good skin turgor. NEUROLOGIC: Cranial nerves II through XII grossly intact. No focal or lateralizing signs. Patient follows commands. Can wiggle toes. PSYCH: Alert and oriented to person. CLINCAL LABS: Reviewed. Urine drug screen negative. ECHO: Reviewed with no acute myocardial wall motion abnormalities. Ejection fraction of 55%. ASSESSMENT: 1. Status post ground-level fall with head laceration and concussive event PLAN: 1. Clinically she is stable. Discharge pending clearances for multiple consultants. 2. May start diet. Objective - Vital Signs Vital signs: Vital Signs Temp 97.9 F 03/22/21 14:50 Pulse 56 L 03/22/21 14:50 Resp 16 03/22/21 14:50 BP 127/64 03/22/21 14:50 Pulse Ox 95 03/22/21 14:50 Intake & Output 03/21/21 03/22/21 03/22/21 18:59 06:59 18:59 Weight 58.967 kg - Labs CBC & Chem 7: 03/21/21 12:36 03/21/21 12:36 Labs: Abnormal Lab Results - Last 24 Hours (Table) 03/22/21 Range/Units Unknown Urine Ketones Trace H (Negative) Urine Blood Trace H (Negative) Amorphous Sediment Rare H (None) /hpf Urine Mucus Rare H (None) /hpf Assessment and Plan (1) Fall from ground level Current Visit: Yes Status: Acute Code(s): W18.30XA - FALL ON SAME LEVEL, UNSPECIFIED, INITIAL ENCOUNTER SNOMED Code(s): 92422035 (2) Concussion Current Visit: Yes Status: Acute Code(s): S06.0X9A - CONCUSSION W LOSS OF CONSCIOUSNESS OF UNSP DURATION, INIT SNOMED Code(s): 328233618 (3) Fracture of superior pubic ramus Current Visit: Yes Status: Acute Code(s): S32.519A - FRACTURE OF SUPERIOR RIM OF UNSP PUBIS, INIT FOR CLOS FX SNOMED Code(s): 353359503 (4) Scalp laceration Current Visit: Yes Status: Acute Code(s): S01.01XA - LACERATION WITHOUT FOREIGN BODY OF SCALP, INITIAL ENCOUNTER SNOMED Code(s): 646709741
[2021-03-22] MEDS: ONDANSETRON 4 MG/2 ML VIAL IVP PRN ×2 (15:48→20:26)
[2021-03-22] MEDS: PANTOPRAZOLE 40 MG TABLET PO SCH (18:31)
--- NOTE | 2021-03-22 19:59 | CONS ---
CONSULTATION REASON FOR CONSULTATION: Blood in the right ear. HISTORY: This is an 80-year-old white female who apparently had a syncopal episode and fell and hit the back of her head on the concrete. She is being treated for concussion. She does not remember the event. She sustained a laceration to the right occipital scalp which required closure. She was noted to have blood in the right ear, although no active bleeding. She does feel that her hearing is diminished in the right ear. She has also had some intermittent vertigo if she turns to the right in bed. This is not every time she moves this way. She is having no ear pain or active bleeding or drainage. She did have a CT scan of the head which was negative for fractures, and the mastoid and sinuses were also noted to be clear. HOME MEDICATIONS: Citalopram, Trelegy, Ellipta, Cozaar, Zocor. ALLERGIES: FISH-DERIVED MEDICATIONS AND PENICILLIN. REVIEW OF SYSTEMS: Pertinent positive and negative responses are in the HPI. All other review of systems negative. SOCIAL HISTORY: She does not drink or smoke. FAMILY HISTORY: Noncontributory. PHYSICAL EXAMINATION: GENERAL: This is well-developed, elderly white female in no acute distress. HEENT: Head shows a staple laceration, the right occipital scalp. No active bleeding. Mild tenderness in this area. Eyes show extraocular movements are intact. EARS: On the left the canal is clear. Tympanic membrane is unremarkable, mobile. On the right, there is some fresh blood, which was cleaned gently with cerumen curette. This does appear to be fresh blood with inferior canal laceration. Cleaning the blood improved her hearing immediately. The tympanic membranes are unremarkable and mobile. Nose shows no drainage or obstruction. Oropharynx and oral cavity are unremarkable with no abnormal lesions or masses. Neck is supple without adenopathy or tenderness. ASSESSMENT: 1. Right-sided bloody otorrhea. Rule out temporal bone fracture. 2. Vertigo which may be related to benign positional vertigo which is post-traumatic. PLAN: I recommended a CT scan of the temporal bones to rule out temporal bone fracture. This would not generally necessitate treatment; however, it is prognostic and may help in workup as far as prognosis of any overall hearing loss. Recommended keeping the right ear dry. Follow up in the office after discharge for audiogram and repeat ear exam. The patient was also given positional exercises. If she has persistent vertigo, then further workup such as ENG would be in order also as an outpatient. Otherwise, no particular contraindication to discharge when she is ready from other the standpoint of the other services. YARED / IJN: [id number] /
[2021-03-22] MEDS ORDERED: ATORVASTATIN 40 MG TAB PO SCH (21:00)
--- NOTE | 2021-03-22 22:34 | CT ---
EXAMINATION TYPE: CT posterior fossa wo con DATE OF EXAM: 03/22/2021 COMPARISON: None HISTORY: Right ear bleeding. CT DLP: 249.2 mGycm Automated exposure control for dose reduction was used. Images obtained through the temporal bones without contrast. There is some mild mucosal thickening in the right side mastoid air cells. Internal auditory canals a re fairly symmetric. There is no evidence of cerebellopontine angle mass. There is mild increased den sity on the wall of the external auditory canal on the right side that could be blood clot. I see no focal bone destruction. There is some mucosal thickening on the right side epitympanic recess. Left s arjun appears normal. There is thickening of the right side tympanic membrane. IMPRESSION: There is evidence for some right-sided mastoiditis. There is blood clot or debris in the right bean picker al auditory canal. There is some thickening of the right tympanic membrane and slight increased densi ty in the epitympanic recess that could be otitis interna.
[2021-03-23 02:18] VITALS: TEMP 97.5
[2021-03-23] MEDS ORDERED: ACETAMINOPHEN TAB 325 MG TAB PO PRN (07:09)
[2021-03-23 07:11] VITALS: RESP 16
[2021-03-23] MEDS: PANTOPRAZOLE 40 MG TABLET PO SCH (07:11)
[2021-03-23] MEDS: CITALOPRAM HYDROBROMIDE 20 MG TAB PO SCH (07:11)
[2021-03-23] MEDS: LOSARTAN 50 MG TAB PO SCH (07:11)
[2021-03-23] MEDS: IPRATROPIUM 0.5 MG/2.5 ML NEBU INHALATION SCH ×2 (08:15→11:36)
[2021-03-23] MEDS: SYMBICORT 80-4.5 MCG INHALER INHALATION SCH (08:15)
[2021-03-23] MEDS ORDERED: MECLIZINE 25 MG TAB PO STA (08:50)
[2021-03-23] MEDS ORDERED: SODIUM CHLORIDE 0.9% 500 ML 500 ML IV ONE (08:50)
--- NOTE | 2021-03-23 10:03 | P.CNNES ---
History of Present Illness Consult date: 03/22/21 Requesting physician: Navin Britton Reason for Consult: Concussion History of Present Illness: Patient is a 80-year-old female came to the hospital by ambulance yesterday at 12:28 PM. As per EMS flow sheet, when they arrived, patient was laying on the ground after a fall from standing position. Patient was stated to have a brief loss of consciousness. Patient is not on blood thinners. There was a small slow amount of bleeding from the right occipital scalp and there was some concern about skull fracture. Patient was placed on cervical collar for precaution. Patient was alert but altered initially but began to respond less throughout transport. Patient's vitals at the scene was blood pressure 212/120, pulse rate 82, respiration 20 and saturation 94% repeat blood pressure was 228/113. Patient tells me that she has gone with a friend for lunch to [employer]. She does have a cane, but was not using it. Patient's friend parked the car, and she was heading towards [employer] when she apparently fell "like a tree in the wood", straight back. Patient lost consciousness for about 5 minutes, started coming around when the EMS was arriving. Patient states that she does not remember anything. Her friend, who has taken her for lunch, mentions that she has walked quite a ways from the parked car towards the restaurant before she fell. Patient had a few other falls in the past. She had a fall at home about 3 weeks ago when she picking up a branch in the front yard, her right knee gave out and she fell forward on her hands and knees but did not hurt herself. One time she fell down on the top soil, also did not hurt herself, just sat down. Patient has balance issues going on for last 3 years. Vital signs on arrival blood pressure 200/118, pulse rate 62. The blood pressure did improve to 135/71. Blood test shows normal CBC, PT/PTT, Chem-7, hepatic panel, troponin. UA shows trace blood. 4 rbc. Urine drug screen negative, blood alcohol level negative. Gómez virus PCR negative. CT head showed atrophy with chronic appearing periventricular white matter ischemic changes. Chronic old lacunar infarct right basal ganglionic versus Virchow Sheldon space. CT of the cervical spine showed degenerative disc changes throughout the cervical spine. Cervical kyphosis. Grade 1 spondylolisthesis of C3 anteriorly on C4. No acute osseous abnormality cervical spine. EKG shows u nusual P axis, possible ectopic atrial rhythm, with premature atrial complexes. Left axis deviation. X-ray of the pelvis showed fracture near the anterior column of the acetabulum and superior pubic ramus junction. Orthopedic surgery has seen patient for right nondisplaced superior pubic ramus fracture. Nonoperative treatment was recommended. Patient also has been seen by ENT specialist because of new onset of hearing loss in the right ear. She also had blood coming out of the right ear for which she will be going another CAT scan. Her hearing improved once the blood was removed from the right EAC. Patient states when she turns her head to the right, she gets very dizzy and vertigo. She couldn't get up and walk to the bathroom without getting dizzy. When she gets up, her hip hurts. She does have a headache. Patient has hypertension, denies diabetes. She has smoked 1 pack per day for last 65 years, still smokes. Never drinks. She lives by herself. Home medications include simvastatin 40 mg, losartan 50 mg, Celexa 40 mg. Review of Systems As mentioned above in detail. Denies any fever or chills. Denies any double vision or loss of vision. No hoarseness, sore throat or dysphagia. No speech difficulty. No chest pain. No abdominal pain. No diarrhea. No rash. Patient has balance problem. Denies any new numbness or tingling. Denies significant memory problems. Past Medical History Past Medical History: COPD, Hyperlipidemia, Hypertension History of Any Multi-Drug Resistant Organisms: None Reported Past Surgical History: Hysterectomy Past Psychological History: No Psychological Hx Reported Smoking Status: Current every day smoker Past Alcohol Use History: None Reported Past Drug Use History: None Reported Medications and Allergies Home Medications Medication Instructions Recorded Confirmed Type Citalopram Hydrobromide 40 mg PO DAILY 03/21/21 03/21/21 History [Citalopram HBr] Fluticasone/Umeclidin/Vilanter 1 puff INHALATION RT-DAILY 03/21/21 03/21/21 History [Trelegy Ellipta 100-62.5-25] Losartan [Cozaar] 50 mg PO DAILY 03/21/21 03/21/21 History Simvastatin [Zocor] 40 mg PO DAILY 03/21/21 03/21/21 History Allergies Allergy/AdvReac Type Severity Reaction Status Date / Time fish derived Allergy Unknown Verified 03/21/21 13:11 Penicillins Allergy Unknown Verified 03/21/21 13:11 Physical Examination - Vital Signs Vital Signs: Vital Signs Temp Pulse Pulse Resp BP BP Pulse Ox 03/22/21 11:57 97.5 F L 70 16 183/77 95 03/22/21 11:25 98.0 F 61 16 156/89 95 03/22/21 10:00 60 16 95 03/22/21 09:00 58 L 16 95 03/22/21 08:00 63 12 172/92 95 03/22/21 03:00 62 12 166/81 95 03/22/21 02:00 56 L 17 156/79 96 03/21/21 21:29 59 L 18 128/87 95 03/21/21 18:58 64 18 166/77 98 03/21/21 17:35 54 L 18 135/71 98 03/21/21 13:02 62 18 200/118 93 L Patient is an elderly female, in no acute distress. Patient is alert, awake oriented to time place and person. Speech and language functions are normal. Patient can name and repeat very well. No aphasia or dysarthria. Attention, concentration and fund of knowledge is adequate. On cranial examination, pupils are round and reacting to light, visual hamilton are full on confrontation, extraocular muscles are intact with no nystagmus. Face is symmetric, tongue protrudes to the midline. Palatal elevation and sensation normal, hearing is decreased on the right and shoulder shrug normal, facial sensation normal. Patient has mikayla on the right occipital scalp for the laceration. On muscle strength testing, there is no pronator drift and the strength is normal in arms distally and proximally. In the lower limbs her knees, ankles and toes are all normal 5/5. Hip flexion was checked cautiously. Patient was able to lift her leg off the bed and kept it steadily up without any droop on either side. No obvious weakness. Deep tendon reflexes are 2+ in the biceps and brachioradialis, 3-3+ at the knees, 2 ankles and plantars downgoing bilaterally. Sensory to touch is equal with no neglect on double simultaneous stimulation. Cerebellar function showed no ataxia for clshln-vs-tofr testing. No dysdiadochokinesia. Tone and bulk of muscles normal. Gait not checked. On general examination, there is no carotid bruit or murmur, S1-S2 audible. Abdomen is soft nontender. Chest is clear. Peripheral pulses are present. No edema. Results - Laboratory Findings CBC and BMP: 03/21/21 12:36 03/21/21 12:36 Abnormal Lab Findings: Abnormal Labs 03/21/21 03/21/21 03/21/21 12:31 12:36 12:36 Hct 46.9 H APTT 19.5 L Carbon Dioxide Glucose POC Glucose (mg/dL) 133 H Urine Ketones Urine Blood Amorphous Sediment Urine Mucus 03/21/21 03/22/21 12:36 Unknown Hct APTT Carbon Dioxide 20 L Glucose 140 H POC Glucose (mg/dL) Urine Ketones Trace H Urine Blood Trace H Amorphous Sediment Rare H Urine Mucus Rare H Assessment and Plan Assessment: * Status post fall with concussion, unclear etiology. * History of balance problems and sporadic falls for the last 3 years. Her balance has been getting worse. Patient does have a cane, but was not using it prior to this current fall. * Right-sided bloody otorrhea, ENT on board. * Vertigo with turning head to the right, possible posttraumatic BPPV. * Hypertension, uncontrolled * Chronic tobacco use. Still smokes one pack per day. Plan: * Patient has balance problem going on for last 3 years. Patient has suffered from a fall with concussion. Exact cause of the fall is uncertain. Rule out arrhythmia, rule out vasovagal syncope versus fall just from losing balance. * 2-D echo shows normal left-ventricular size. Mild concentric LVH, EF is between 55-60%. Mitral valve leaflets are mildly thickened. Mild MR. * Telemetry monitoring showing sinus rhythm, sinus bradycardia in 60s to 50s. * ENT following for vertigo and right-sided bloody otorrhea. * Carotid Doppler to rule out stenosis. * B12, folate, MMA, B6. TSH is normal. Her last hemoglobin A1c 6.0 on 09/27/2019. * Telemetry monitoring so far showing sinus rhythm, sinus bradycardia in 60s to 50s. * We will follow.
[2021-03-23] MEDS: SODIUM CHLORIDE 0.9% 1,000 ML IV SCH (10:50)
--- NOTE | 2021-03-23 10:58 | P.PN ---
Subjective Progress Note Date: 03/23/21 HISTORY OF PRESENT ILLNESS: Patient examined this morning at the bedside. Patient is currently working with physical therapy. She denies chest pain or pressure. She denies dizziness or lightheadedness. Denies shortness of breath. Telemetry reveals sinus mechanism with PACs. Echocardiogram completed reveals ejection fraction 55-60%. PHYSICAL EXAM: VITAL SIGNS: Reviewed. GENERAL: Well-developed in no acute distress. NECK: Supple. No JVD or thyromegaly LUNGS: Respirations even and unlabored. Lungs essentially clear to auscultation bilaterally. HEART: Regular rate and rhythm. S1 and S2 heard. EXTREMITIES: Normal range of motion. No clubbing or cyanosis. Peripheral pulses intact. No lower extremity edema ASSESSMENT: Status post fall Hypertension Hyperlipidemia COPD PLAN: No further inpatient recommendations from a cardiac standpoint. We will sign off. Please reconsult if needed. Nurse practitioner note has been reviewed by physician. Signing provider agrees with the documented findings, assessment, and plan of care. Objective - Vital Signs Vital signs: Vital Signs Temp 97.5 F L 03/23/21 07:00 Pulse 61 03/23/21 07:00 Resp 16 03/23/21 07:00 BP 188/87 03/23/21 07:00 Pulse Ox 97 03/23/21 07:00 Intake & Output 03/22/21 03/23/21 03/23/21 18:59 06:59 18:59 Intake Total 200 Balance 200 Intake: Oral 200 Other: Voiding Method Toilet Toilet Toilet # Voids 1 1 - Labs CBC & Chem 7: 03/21/21 12:36 03/21/21 12:36
--- NOTE | 2021-03-23 11:55 | P.PN ---
Subjective Progress Note Date: 03/23/21 CHIEF COMPLAINT: Status post fall, ground level HISTORY OF PRESENT ILLNESS: The patient is a 80-year-old female who presented acutely to the emergency room yesterday as a initial level I trauma downgraded to level II for ground-level fall onto concrete ground. Patient has multiple medical consultants following. Patient is being seen by neurology for concussive symptoms. Patient reports chronic bleeding from the ear occluding with sneezing or blood in her nose. Patient has worsening hypertensive crisis which was present at time of admission with blood pressures 170s over 120s with systolic in the 180s. Patient had been ablated by physical therapy and found to have severe vertigo complicating case including recurrent falls. Medicine consultation following. She is tolerating diet. REVIEW OF ORGAN SYSTEMS: No chest pain. No shortness of breath. No fevers or chills. PHYSICAL EXAM: VITALS: Reviewed CONSTITUTIONAL: Well developed and in no acute distress. EYES: Conjuctivae without sclera icterus. Extraocular movements grossly intact. HEAD, EARS, NOSE, THROAT: Moist buccal mucosa. Hears conversational speech. No nasal drainage. Laceration of posterior scalp. Drainage from ear with blood. RESPIRATORY: Non-labored respirations and equal bilateral excursions. No gross wheezes. CARDIOVASCULAR: Regular rate and rhythm. Palpable 2+ radial pulses. ABDOMEN: No peritonitis. Nontender. MUSCULOSKELETAL: No clubbing cyanosis or edema. SKIN: Warm and well perfused with good skin turgor. NEUROLOGIC: Cranial nerves II through XII grossly intact. No focal or lateralizing signs. PSYCH: Alert and oriented to person. STUDIES: Report of CT posterior fossa demonstrates mastoiditis of the right ear including clot of the auditory canal. ASSESSMENT: 1. Status post ground-level fall with head laceration and concussive event 2. Hypertensive crises with organ dysfunction 3. Severe vertigo as a cause of fall 4. Bleeding from the ear following fall with acute mastoiditis PLAN: 1. Patient has uncontrolled hypertensive crises requiring medical management. Additionally outpatient follow-up advised 2. Discussion physical therapy confirmed patient is unsteady with recurrent risk for fall. 3. Follow-up with primary care provider advised Objective - Vital Signs Vital signs: Vital Signs Temp 97.5 F L 03/23/21 07:00 Pulse 61 03/23/21 07:00 Resp 16 03/23/21 07:00 BP 188/87 03/23/21 07:00 Pulse Ox 97 03/23/21 07:00 Intake & Output 03/22/21 03/23/21 03/23/21 18:59 06:59 18:59 Intake Total 200 Balance 200 Intake: Oral 200 Other: Voiding Method Toilet Toilet Toilet # Voids 1 1 - Labs CBC & Chem 7: 03/21/21 12:36 03/21/21 12:36 Assessment and Plan (1) Fall from ground level Current Visit: Yes Status: Acute Code(s): W18.30XA - FALL ON SAME LEVEL, UNSPECIFIED, INITIAL ENCOUNTER SNOMED Code(s): 96768063 (2) Concussion Current Visit: Yes Status: Acute Code(s): S06.0X9A - CONCUSSION W LOSS OF CONSCIOUSNESS OF UNSP DURATION, INIT SNOMED Code(s): 406336903 (3) Fracture of superior pubic ramus Current Visit: Yes Status: Acute Code(s): S32.519A - FRACTURE OF SUPERIOR RIM OF UNSP PUBIS, INIT FOR CLOS FX SNOMED Code(s): 902557251 (4) Scalp laceration Current Visit: Yes Status: Acute Code(s): S01.01XA - LACERATION WITHOUT FOREIGN BODY OF SCALP, INITIAL ENCOUNTER SNOMED Code(s): 674717145 (5) Acute mastoiditis Current Visit: Yes Status: Acute Code(s): H70.009 - ACUTE MASTOIDITIS WITHOUT COMPLICATIONS, UNSPECIFIED EAR SNOMED Code(s): 438897093
--- NOTE | 2021-03-23 12:30 | P.DS ---
<Chanda Shell - Last Filed: 03/23/21 12:22> Providers Expected date of discharge: 03/23/21 Hospital Course: Discharge diagnosis 1. Status post ground-level fall with head laceration and concussive event 2. Hypertensive crises with organ dysfunction 3. Severe vertigo as a cause of fall 4. Bleeding from the ear following fall with acute mastoiditis 5. Right nondisplaced superior pubic ramus fracture Hospital course The patient is a 80-year-old female who presented acutely to the emergency room yesterday as a initial level I trauma downgraded to level II for ground-level fall onto concrete ground. Patient has multiple medical consultants following. Patient is being seen by neurology for concussive symptoms. Patient reports chronic bleeding from the ear. Patient has worsening hypertensive crisis which was present at time of admission with blood pressures 170s over 120s with systolic in the 180s. Patient has been seen evaluated by physical therapy she was found to have unsteady balance. She is having severe vertigo and this likely contributed to recurrent falls. Patient evaluated by orthopedics during this admission regarding her new right nondisplaced superior pubic ramus fracture. They are not recommending any surgical intervention. Patient seen by cardiology and no arrhythmias reported. She is also been seen by neurology, ENT and medicine service. She is tolerating diet. She denies any pain. She has been up and ambulating. She is afebrile. She is stable for discharge. Please refer to chart for further details. Physician Monotype Operator note has been reviewed by physician. Signing provider agrees with the documented findings, assessment, and plan of care. Patient Condition at Discharge: Stable Plan - Discharge Summary Discharge Rx Participant: Yes New Discharge Prescriptions: Continue Simvastatin [Zocor] 40 mg PO DAILY Losartan [Cozaar] 50 mg PO DAILY Citalopram Hydrobromide [Citalopram HBr] 40 mg PO DAILY Fluticasone/Umeclidin/Vilanter [Trelegy Ellipta 100-62.5-25] 1 puff INHALATION RT-DAILY Discharge Medication List Citalopram Hydrobromide [Citalopram HBr] 40 mg PO DAILY 03/21/21 [History] Fluticasone/Umeclidin/Vilanter [Trelegy Ellipta 100-62.5-25] 1 puff INHALATION RT-DAILY 03/21/21 [History] Losartan [Cozaar] 50 mg PO DAILY 03/21/21 [History] Simvastatin [Zocor] 40 mg PO DAILY 03/21/21 [History] Follow up Appointment(s)/Referral(s): Bisi Miller MD [STAFF PHYSICIAN] - 1 Week Celia Cooper DO [Primary Care Provider] - 03/30/21 10:15 am Lizandro Mcnair MD [STAFF PHYSICIAN] - 03/27/21 7:15 am Raphael Latif MD [STAFF PHYSICIAN] - 1 Week (postural hypotension. pt wants to make own appointment. Hard for her to get out to [place] early) Amandeep Velazco MD [Medical Doctor] - 04/05/21 10:30 am Patient Instructions/Handouts: Concussion (DC) <Bisi Miller - Last Filed: 03/23/21 23:33> Providers Date of admission: 03/23/21 11:46 Attending physician: Bisi Miller Consults: 03/21/21 13:46 Consult Physician Urgent Consulting Provider: Lucian Jackson Consult Reason/Comments: Concussion Do you want consulting provider notified?: Yes Consult Physician Urgent Consulting Provider: Areli Pandey Consult Reason/Comments: Medical management Do you want consulting provider notified?: Yes 03/21/21 18:34 Consult Physician Urgent Consulting Provider: Amandeep Velazco Consult Reason/Comments: Superior rami fracture Do you want consulting provider notified?: Yes Consult Physician Urgent Consulting Provider: Lizandro Mcnair Consult Reason/Comments: Right ear canal bleeding Do you want consulting provider notified?: Yes Primary care physician: Celia Cooper - Discharge Diagnosis(es) (1) Fall from ground level Status: Acute (2) Concussion Status: Acute (3) Fracture of superior pubic ramus Status: Acute (4) Scalp laceration Status: Acute (5) Acute mastoiditis Status: Acute Hospital Course: As above. Patient admitted after ground level fall with scalp laceration. She presented with hypertension. Multiple consultants had evaluated. Patient is independent and lives alone. Vertigo had improved prior to discharge. Recommend outpatient follow up with primary care for medical issues.
[2021-03-23 12:45] LABS: Glucose,Whole Blood 110 mg/dL (75-99)
[2021-03-23 12:51] LABS: Hemoglobin A1C 5.6 % (4.0-6.0)
[2021-03-23 13:05] VITALS: BP 184/74; PULSE 54
[2021-03-23] MEDS ORDERED: LOSARTAN 50 MG TAB PO SCH (21:00)
--- NOTE | 2021-03-23 23:59 | P.PN ---
Subjective This is a pleasant 80 years old female with past medical history of hypertension, hyperlipidemia, COPD Patient presents because of fall backwards and hitting his head withoout associated loss of consciousness but per EMS became less responsive. Patient could not remember the event. Patient states she was walking to the restroom with her girlfriend but she hadn't talked to her after she fell., The next thing she remembers she is in the hospital. She thinks she has COPD and she smokes about 1 pack per day, no alcohol or illicit tracts but she denies dyspnea, no exertional dyspnea or chest pain. No nausea vomiting or diarrhea. No abdominal pain. No headache or weakness or numbness. She got dizzy sometimes especially when she gets up clearly and quickly. Denies the last week ago. She saw her PCP Dr. Mcguire one week earlier to check her veins as she has some red rash in her both feet, they told her she has been veins. 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 Liver enzymes not elevated. Urine analysis showing trace glucose and ketones otherwise is unremarkable her urine drug screen is negative, serum alcohol is negative EKG showing possible ectopic atrial rhythm with PAC. No significant ST-T changes, poor R-wave progression and QTC of 459. Chest x-ray showing age indeterminant deformities involving mid lateral and lower right rib cage correlated with point tenderness to exclude subtle acute fractures CT of the head and cervical spine: Unremarkable for acute process. No fracture or dislocation Pelvic x-ray suspicious for acute fracture near the anterior column of the acetabulum and superior pubic ramus junction. In the emergency room she started on normal saline at 75 mL/h 03/23/21 Patient today feels much better she is fully awake and oriented, she denies chest pain, no abdominal pain. No nausea vomiting. No diarrhea. No headache or weakness or numbness. She has some postural dizziness and orthostatic showing mild orthostatic hypotension, patient was informed about this problem and instructed to follow up with her PCP upon discharge and she agrees. She is hemodynamically stable. TSH and hemoglobin A1c are normal. Ejection fraction 55-60% and haircutter actually signed off the case. Also patient evaluated by neurologist. Orthopedic team recommended conservative treatment and may bear weight, no surgery ENT recommended CAT scan of the face Primary surgery team R following the case closely Also patient has an appointment with her PCP Dr. Mcguire on 03/30 neck suite. I called his office and he was not available, I talked to his certified physician's assistant Marly and discussed the case with her with recommendation to follow up on her postural vitals and hypertension and also on vitamin B12 which is ordered and result is pending and she currently took note of these recommendations and said she will follow up. Also patient was informed need to follow-up on her vitamin B12 level which is a still pending Objective - Vital Signs Vital signs: Vital Signs Temp 97.5 F L 03/23/21 07:00 Pulse 54 L 03/23/21 13:03 Resp 16 03/23/21 07:00 BP 184/74 03/23/21 13:03 Pulse Ox 94 L 03/23/21 13:03 Intake & Output 03/22/21 03/23/21 03/23/21 18:59 06:59 18:59 Intake Total 200 Balance 200 Intake: Oral 200 Other: Voiding Method Toilet Toilet Toilet # Voids 1 1 - Exam GENERAL: The patient is alert and oriented x3, not in any acute distress. Well developed, well nourished. -HEENT: Pupils are round and equally reacting to light. EOMI. No scleral icterus. No conjunctival pallor. Normocephalic, atraumatic. No pharyngeal erythema. No thyromegaly. Sutured laceration of the back of her right upper head, looks dehydrated CARDIOVASCULAR: S1 and S2 present. No murmurs, rubs, or gallops. PULMONARY: Chest is clear to auscultation, no wheezing or crackles. ABDOMEN: Soft, nontender, nondistended, normoactive bowel sounds. No palpable organomegaly. MUSCULOSKELETAL: No joint swelling or deformity. EXTREMITIES: No cyanosis, clubbing, or pedal edema. NEUROLOGICAL: Gross neurological examination did not reveal any focal deficits. -SKIN: No rashes. No petechiae. Some mild pinkish rash on the right forefoot and left ankle. No cellulitis, no warmth or swelling or tenderness - Labs CBC & Chem 7: 03/21/21 12:36 03/21/21 12:36 Labs: Abnormal Lab Results - Last 24 Hours (Table) 03/23/21 Range/Units 12:42 POC Glucose (mg/dL) 110 H (75-99) mg/dL Assessment and Plan Assessment: Fall with concussion and transient loss of consciousness, possible syncope. Evaluated by haircutter percent of the case Chronic dizziness most likely associated with postural hypotension Scalp laceration status post surgical repair Right pelvic fracture, acetabulum and superior pubic ramus Possible right mid lateral and lower rib cage fractures Possible Right ear bleeding, stopped now Hypertension, uncontrolled on admission Hyperlipidemia COPD, no acute process Nicotine dependence Plan: This is a pleasant 80 years old female who presents with fall/concussion, scalp laceration, pelvic fracture and right ear bleeding Continue with gentle hydration, haircutter evaluated the patient Follow-up vitamin B12 Resume losartan and monitor blood pressure. Continue with gentle hydration Check telemetry several consultants on the case including neurology, ENT and orthopedic. Besides the surgery primary team Labs and medication were reviewed.. Continue same treatment. Continue with symptomatic treatment. Resume home medication. Monitor lytes and vitals. DVT and GI prophylaxis. Further recommendations depends on the clinical course of the patient PT/OT: Pending Prognosis is guarded We will follow up with you on the case Patient will need close follow-up with her PCP upon discharge, I discussed the case with her PCP team for continuity of care Thank you for consulting us. Please feel free to contact us for any further question or clarification
== END 2021-03-23 15:08 | disposition home or self-care (01) | DRG 89 ==
LOC: EC 12:28 → 6NMEDSUR 13:51 → OBSVTOIN 03-23 11:46
PROVIDERS: ADMIT Surgery Plastic and Reconstructive Surgery; ATTEND Surgery Plastic and Reconstructive Surgery
PROC: 0HQ0XZZ Repair Scalp Skin, External Approach (ICD-10-PCS; principal; 2021-03-23)
DX: S06.0X9A Concussion with loss of consciousness of unspecified duration, initial encounter (principal); I16.9 Hypertensive crisis, unspecified; S32.501A Unspecified fracture of right pubis, initial encounter for closed fracture; H70.009 Acute mastoiditis without complications, unspecified ear; I10 Essential (primary) hypertension; H91.91 Unspecified hearing loss, right ear; H92.21 Otorrhagia, right ear; F17.210 Nicotine dependence, cigarettes, uncomplicated; I95.1 Orthostatic hypotension; J44.9 Chronic obstructive pulmonary disease, unspecified; E78.5 Hyperlipidemia, unspecified; M40.202 Unspecified kyphosis, cervical region; R26.81 Unsteadiness on feet; H81.10 Benign paroxysmal vertigo, unspecified ear; M43.12 Spondylolisthesis, cervical region; M95.4 Acquired deformity of chest and rib; R29.6 Repeated falls; S01.01XA Laceration without foreign body of scalp, initial encounter; W18.30XA Fall on same level, unspecified, initial encounter; Y92.009 Unspecified place in unspecified non-institutional (private) residence as the place of occurrence of the external cause; Z79.899 Other long term (current) drug therapy; Z90.710 Acquired absence of both cervix and uterus; Z20.822 Contact with and (suspected) exposure to COVID-19; Z60.2 Problems related to living alone; Z88.8 Allergy status to other drugs, medicaments and biological substances; Z88.0 Allergy status to penicillin; Z91.013 Allergy to seafood
CPT/HCPCS: 12002; 36415; 70450; 70480; 71045; 72125; 72170; 80053; 80306; 80320; 81001; 82607; 83036; 84443; 84484; 85025; 85610; 85730; 86850; 86900; 86901; 87635; 90471; 90715; 93005; 93306; 96361; 96365; 96375; 96376; 99285